=== PATIENT | male | born 1975 | race Caucasian/White ===

== ENCOUNTER 2022-06-08 14:39 | Inpatient (IN) | payer OTHER, SELFPAY ==
[2022-06-08 15:07] VITALS: BP 165/96; PULSE 85; RESP 18; TEMP 36.8; O2SAT 95; BMI 30.9
--- NOTE | 2022-06-08 17:20 | ED_ITS ---
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 Mccarthy and had MRI 06/05 which showed demyelinating lesion possible MS patient also noticed patchy numbness and weakness of the other side of the body for last few weeks no family history of MS patient does not know much about his father patient feels bilateral altered sensation with off-balance feeling Related Data Allergies Allergy/AdvReac Type Severity Reaction Status Date / Time cilantro Allergy Anaphylaxis Uncoded 06/08/22 15:15 Review of Systems Review of Systems: Yes all other systems are reviewed and are negative [facility] Social History Social History Alcohol intake: former Patient Tobacco Use Status: Never used Tobacco Use of substances other than those prescribed or required for medical reasons: No Advance Directives: No Advance Directives Information Provided: Yes Physical Exam Vital Signs: Vital Signs: Last Vital Signs Temp 98.5 F 06/08/22 19:27 Pulse 70 06/08/22 22:27 Resp 15 06/08/22 22:27 BP 127/77 06/08/22 22:27 Pulse Ox 96 06/08/22 22:27 O2 Del Method 06/08/22 22:27 BMI result Body Mass Index 30.9 Appearance: Alert. Oriented X3. No acute distress. Eyes: PERRLA, No Nystagmus EOMI no diplopia ENT: Pharynx normal. Oral Mucosa moist Neck: Normal inspection. Neck supple. CVS: Normal heart rate and rhythm. Pulses normal. Respiratory: No respiratory distress. Equal air entry bilateral, no wheezing/rales/rhonchi Abdomen: Soft and nontender. Bowel sounds are present, no mass palpable, no CVA tenderness Skin: Skin warm and dry. Normal skin color. Normal skin turgor. Extremities: No lower extremity edema. No calf tenderness Neuro: Oriented X 3. No motor deficit. No sensory deficit.No cerebellar signs , cranial nerves II-XII intact, slight left footdrop+ Procedures Lumbar Puncture Time Out Performed: Yes Patient Position: upright Skin Prep: Povidone-Iodine 1% Local Anesthetic: lidocaine 2% Amount of anesthesia used (mL): 5 Spinal Needle Gauge: 22G Interspace Used: L4-L5 Fluid Initially Obtained: clear Complications: none MDM - Neuro Symptoms/Deficit MDM Narrative Medical decision making narrative: Patient with flare of multiple sclerosis spinal tap was done sample sent for oligoclonal bands. Case discussed with neurologist Dr. Kulkarni advised to start on high-dose Solu-Medrol for 3 days Medical Records Attestation: I reviewed the patient's medical records. Lab Data Attestation: I reviewed the patient's lab results. Result diagrams: 06/08/22 17:35 06/08/22 17:35 Labs: Lab Results 06/08/22 06/08/22 06/08/22 Range/Units 17:35 17:35 17:35 WBC 7.2 (4.8-10.8) X10*3/uL RBC 5.94 H (4.60-5.80) X10*6/uL Hgb 16.7 (14.0-18.0) g/dl Hct 49.0 (42.0-52.0) % MCV 82.5 (80.0-98.0) fL MCH 28.1 (27.0-33.0) pg MCHC 34.1 (31.0-36.0) g/dl RDW 12.0 (11.0-16.0) % Plt Count 234 (160-400) X10*3/uL MPV 9.1 L (9.4-12.4) fL Immature Gran % (Auto) 0.3 (0.0-0.4) % Neut % (Auto) 55.7 (45-73) % Lymph % (Auto) 33.2 (20-40) % [place] % (Auto) 7.2 (2-11) % Eos % (Auto) 2.4 (0-4) % Baso % (Auto) 1.2 (0-2) % Lymph # (Auto) 2.4 (1.2-4.9) X10*3/uL [place] # (Auto) 0.5 (0.1-1.2) X10*3/uL Eos # (Auto) 0.2 (0.0-0.4) X10*3/uL Baso # (Auto) 0.1 (0.0-0.2) X10*3/uL Abs Immat Gran (auto) 0.02 (0.00-0.03) X10*3/uL Absolute Neuts (auto) 4.0 (2.0-8.3) x10*3/uL Absolute Nucleated RBC 0.000 (0.0-0.012) X10*3/uL Nucleated RBC % (auto) 0.0 (0.0-0.2) /100WBC ESR 2 (0-15) MM/HR Sodium 140 (135-145) mmol/L Potassium 4.5 (3.3-5.1) mmol/L Chloride 101 (96-108) mmol/L Carbon Dioxide 24 (22-29) mmol/L Anion Gap 20 (12-20) BUN 17 H (9-16) mg/dL Creatinine 1.04 (0.5-1.4) mg/dL Estim Creat Clear Calc 85.5 Estimated GFR > 60 Random Glucose 90 (60-115) mg/dL Calcium 10.2 (8.4-10.2) mg/dL Magnesium 2.3 (1.6-2.6) mg/dL Total Bilirubin 0.8 (0.0-1.0) mg/dL AST 40 H (5-37) U/L ALT 53 H (0-40) U/L Alkaline Phosphatase 71 (39-117) U/L C-Reactive Protein 0.08 (< or = 0.50) mg/dL Total Protein 7.6 (6.5-8.0) g/dL Albumin 4.9 (3.5-5.0) g/dL CSF Tube Number CSF Volume ML CSF Appearance CSF Color CSF WBC MM*3 CSF RBC MM*3 CSF Lymphocytes % CSF Appearance (b) CSF Glucose CSF Total Protein (15-45) mg/dL COVID-19 (TITI) (Negative) COVID-19 Clin Com 06/08/22 06/08/22 06/08/22 Range/Units 18:37 18:50 18:50 WBC (4.8-10.8) X10*3/uL RBC (4.60-5.80) X10*6/uL Hgb (14.0-18.0) g/dl Hct (42.0-52.0) % MCV (80.0-98.0) fL MCH (27.0-33.0) pg MCHC (31.0-36.0) g/dl RDW (11.0-16.0) % Plt Count (160-400) X10*3/uL MPV (9.4-12.4) fL Immature Gran % (Auto) (0.0-0.4) % Neut % (Auto) (45-73) % Lymph % (Auto) (20-40) % [place] % (Auto) (2-11) % Eos % (Auto) (0-4) % Baso % (Auto) (0-2) % Lymph # (Auto) (1.2-4.9) X10*3/uL [place] # (Auto) (0.1-1.2) X10*3/uL Eos # (Auto) (0.0-0.4) X10*3/uL Baso # (Auto) (0.0-0.2) X10*3/uL Abs Immat Gran (auto) (0.00-0.03) X10*3/uL Absolute Neuts (auto) (2.0-8.3) x10*3/uL Absolute Nucleated RBC (0.0-0.012) X10*3/uL Nucleated RBC % (auto) (0.0-0.2) /100WBC ESR (0-15) MM/HR Sodium (135-145) mmol/L Potassium (3.3-5.1) mmol/L Chloride (96-108) mmol/L Carbon Dioxide (22-29) mmol/L Anion Gap (12-20) BUN (9-16) mg/dL Creatinine (0.5-1.4) mg/dL Estim Creat Clear Calc Estimated GFR Random Glucose (60-115) mg/dL Calcium (8.4-10.2) mg/dL Magnesium (1.6-2.6) mg/dL Total Bilirubin (0.0-1.0) mg/dL AST (5-37) U/L ALT (0-40) U/L Alkaline Phosphatase (39-117) U/L C-Reactive Protein (< or = 0.50) mg/dL Total Protein (6.5-8.0) g/dL Albumin (3.5-5.0) g/dL CSF Tube Number 1 4 CSF Volume 1.0 2.0 ML CSF Appearance CLEAR CLEAR CSF Color COLORLESS COLORLESS CSF WBC 1 3 MM*3 CSF RBC 2 0 MM*3 CSF Lymphocytes 100 100 % CSF Appearance (b) CSF Glucose CSF Total Protein (15-45) mg/dL COVID-19 (TITI) Negative (Negative) COVID-19 Clin Com See Note 06/08/22 06/08/22 Range/Units 18:50 18:50 WBC (4.8-10.8) X10*3/uL RBC (4.60-5.80) X10*6/uL Hgb (14.0-18.0) g/dl Hct (42.0-52.0) % MCV (80.0-98.0) fL MCH (27.0-33.0) pg MCHC (31.0-36.0) g/dl RDW (11.0-16.0) % Plt Count (160-400) X10*3/uL MPV (9.4-12.4) fL Immature Gran % (Auto) (0.0-0.4) % Neut % (Auto) (45-73) % Lymph % (Auto) (20-40) % [place] % (Auto) (2-11) % Eos % (Auto) (0-4) % Baso % (Auto) (0-2) % Lymph # (Auto) (1.2-4.9) X10*3/uL [place] # (Auto) (0.1-1.2) X10*3/uL Eos # (Auto) (0.0-0.4) X10*3/uL Baso # (Auto) (0.0-0.2) X10*3/uL Abs Immat Gran (auto) (0.00-0.03) X10*3/uL Absolute Neuts (auto) (2.0-8.3) x10*3/uL Absolute Nucleated RBC (0.0-0.012) X10*3/uL Nucleated RBC % (auto) (0.0-0.2) /100WBC ESR (0-15) MM/HR Sodium (135-145) mmol/L Potassium (3.3-5.1) mmol/L Chloride (96-108) mmol/L Carbon Dioxide (22-29) mmol/L Anion Gap (12-20) BUN (9-16) mg/dL Creatinine (0.5-1.4) mg/dL Estim Creat Clear Calc Estimated GFR Random Glucose (60-115) mg/dL Calcium (8.4-10.2) mg/dL Magnesium (1.6-2.6) mg/dL Total Bilirubin (0.0-1.0) mg/dL AST (5-37) U/L ALT (0-40) U/L Alkaline Phosphatase (39-117) U/L C-Reactive Protein (< or = 0.50) mg/dL Total Protein (6.5-8.0) g/dL Albumin (3.5-5.0) g/dL CSF Tube Number Cancelled 2 CSF Volume ML CSF Appearance CSF Color CSF WBC MM*3 CSF RBC MM*3 CSF Lymphocytes % CSF Appearance (b) Cancelled Clear, Colorless CSF Glucose Cancelled 53 CSF Total Protein 49.7 H (15-45) mg/dL COVID-19 (TITI) (Negative) COVID-19 Clin Com Imaging Data MRI - head: Radiologist's impression: Result type: MRI Brain W+W/O Contrast Result date: June 05, 2022 15:13 EDT Result status: Modified Result title: MRI Brain W+W/O Contrast Performed by: Not on Staff , RHONDA HUGHES on June 05, 2022 16:26 EDT Verified by: Not on Staff RHONDA MD on June 05, 2022 16:26 EDT Encounter info: [id number], [place] [facility] - * Final Report * Reason For Exam ruling out old stroke VS Mass VS MS;ruling out old stroke VS Mass VS MS RESULT: MRI Brain W+W/O Contrast [place] [facility] VISIT NUMBER :[id number] Patient Name: Alexy Navarro Date of : 1975 Date of Exam: 06-05-2022 Referring Physician: Juan Toro [address] [address] Exam: MR Brain (C-/C+) CPT 03949 Room Description: [facility] 1.5 INDICATION: Muscle weakness. Evaluate for old stroke, mass, or MS. Per technologist interview, patient reports left-sided arm and leg numbness and weakness, now right leg numbness. TECHNIQUE: Multiplanar, multisequence MRI of the brain was performed before and after the uneventful administration of 17 mL Dotarem intravenous contrast. Noncontrast 3-D [id number] MRA of the head was performed. 3-D rotational MIP reformats were created at a separate workstation under supervision by the radiologist and used in the interpretation. COMPARISON: None. FINDINGS: MRI BRAIN: Several foci of T2 prolongation are seen in the brain, largest in the periventricular white matter adjacent to the mid body of the right lateral ventricle, as well as additional foci in the periventricular white matter adjacent to the mid body of the left lateral ventricle and right atrium, in the subcortical white matter of bilateral frontal lobes, and in the left patti. There is no associated restricted diffusion or enhancement at any site. The midline structures, including sella, corpus callosum, and craniocervical junction, are unremarkable. The ventricles, sulci, and subarachnoid spaces are normal in size and configuration. There is no evidence of acute infarct or intracranial hemorrhage. No mass lesion, mass effect, or shift of the midline structures is noted. There is no extra-axial collection. No abnormal enhancement is seen. The major intracranial vascular flow voids are present. Orbits, paranasal sinuses, and mastoids are unremarkable. MRA HEAD: Anterior circulation: The intracranial internal carotid arteries are normal in caliber and appearance. Bilateral ACAs and MCAs as well as their visualized branches are patent. There is no significant stenosis or proximal vessel cut off. There is no evidence of aneurysm or vascular malformation. Posterior circulation: The right vertebral artery is nondominant and small in caliber, but patent. Left vertebral artery is widely patent. The basilar artery, and bilateral PICA, AICA, SCA and [employer] branches are normal in caliber. There is predominantly supply to the left [employer] with hypoplastic left P1 segment. No stenosis, proximal cut off, aneurysm, or vascular malformation is seen. IMPRESSION: 1. Several nonenhancing foci of T2/FLAIR hyperintense signal in the brain, including periventricular and subcortical white matter as well as the brainstem. This raises concern for sequelae of demyelinating disease, though no enhancement is seen to suggest active demyelination. Differential considerations include other prior inflammatory/infectious etiology, early small vessel disease, vasculitis, among other etiologies. Correlate with clinical history and recommend follow-up imaging. 2. No acute infarct, hemorrhage, mass effect, or other acute intracranial abnormality. 3. No significant stenosis or proximal cutoff of the major intracranial arteries. Electronically Signed By: Angelic Watson MD Signature Line Dictated By: Not on Staff , RHONDA HUGHES Dictated Date/Time: 06/05/22 4:26 pm Reviewed By: Not on Staff , RHONDA HUGHES Signed By: Not on Staff , RHONDA HUGHES Signed Date/Time: 06/05/22 4:26 pm Transcribed By: ROBY Transcribed Date/Time: 06/05/22 4:26 pm MRI Brain W+W/O Contrast This document has an image Discharge Plan Discharge Clinical Impression: Multiple sclerosis exacerbation Patient Disposition: Admitted As Inpatient
[2022-06-08 17:42] LABS: MANUAL DIFF FLAG NO
[2022-06-08 17:44] LABS: Basophils Absolute Auto 0.1 X10*3/uL (0.0-0.2); Basophils Percent Auto 1.2 % (0-2); Eosinophils Absolute Auto 0.2 X10*3/uL (0.0-0.4); Eosinophils Percent Auto 2.4 % (0-4); Hemoglobin 16.7 g/dl (14.0-18.0); Imm Gran Abs Auto 0.02 X10*3/uL (0.00-0.03); Imm Gran Pct Auto 0.3 % (0.0-0.4); Lymphocytes Absolute Auto 2.4 X10*3/uL (1.2-4.9); Lymphocytes Percent Auto 33.2 % (20-40); Mean Corpuscular HGB Conc 34.1 g/dl (31.0-36.0); Mean Corpuscular Hemoglobin 28.1 pg (27.0-33.0); Mean Corpuscular Volume 82.5 fL (80.0-98.0); Mean Platelet Volume 9.1 fL (9.4-12.4); Monocytes Absolute Auto 0.5 X10*3/uL (0.1-1.2); Monocytes Percent Auto 7.2 % (2-11); Neutrophils Percent Auto 55.7 % (45-73); Platelet Count 234 X10*3/uL (160-400); Red Blood Count 5.94 X10*6/uL (4.60-5.80); White Blood Count 7.2 X10*3/uL (4.8-10.8)
[2022-06-08 17:59] LABS: Alanine Aminotransferase 53 U/L (0-40); Albumin Level 4.9 g/dL (3.5-5.0); Alkaline Phosphatase 71 U/L (39-117); Anion Gap 20 (12-20); Aspartate Amino Transferase 40 U/L (5-37); Bilirubin Total 0.8 mg/dL (0.0-1.0); Blood Urea Nitrogen 17 mg/dL (9-16); C Reactive Protein 0.08 mg/dL (< or = 0.50); Calcium 10.2 mg/dL (8.4-10.2); Carbon Dioxide 24 mmol/L (22-29); Chloride 101 mmol/L (96-108); Creatinine Clr Calc Pharmacy 85.5; Estimated Glomerular Filt Rate > 60; Glucose Random 90 mg/dL (60-115); Magnesium 2.3 mg/dL (1.6-2.6); Potassium 4.5 mmol/L (3.3-5.1); Sodium 140 mmol/L (135-145); Total Protein 7.6 g/dL (6.5-8.0)
[2022-06-08 18:08] VITALS: BP 119/84; PULSE 72; RESP 18; TEMP 37.1; O2SAT 94
[2022-06-08 18:22] LABS: Erythrocyte Sedimentation Rate 2 MM/HR (0-15)
[2022-06-08 19:02] LABS: COVID-19 Test Negative (Negative); IDNOW Serial# 16C4AD1C
[2022-06-08 19:19] LABS: CSF Appearance Clear, Colorless; CSF Tube # 2
[2022-06-08 19:27] VITALS: BP 126/77; PULSE 70; RESP 17; TEMP 36.9; O2SAT 96
[2022-06-08 19:49] LABS: Glucose CSF 53 mg/dL; Total Protein CSF 49.7 mg/dL (15-45)
[2022-06-08 19:51] LABS: Appearance CSF CLEAR; CSF Tube # 4; Color CSF COLORLESS; Lymphocytes CSF 100 %; Red Blood Cell CSF 0 MM*3; White Blood Cell CSF 3 MM*3
[2022-06-08 19:52] LABS: CSF Tube # 1; Color CSF COLORLESS; Lymphocytes CSF 100 %; Red Blood Cell CSF 2 MM*3; White Blood Cell CSF 1 MM*3
[2022-06-08] MEDS: methylPREDNISolone Sod Succ 1,000 MG in 0.9 % Sodium Chloride 50 ML 66 MG IV (21:15)
[2022-06-08 21:18] VITALS: BP 112/69; PULSE 68; RESP 17; O2SAT 96
--- NOTE | 2022-06-08 22:20 | PM.IMHP ---
History of Present Illness Date of Service: 06/08/22 Chief Complaint: MS this is a 46-year-old male who was otherwise healthy presents to the hospital stating that he was sent by his doctor for MS workup. Patient reports that about 10 days ago he was awoken in the middle the night with pain in his left arm. Over the next 10 days he progressively developed various abnormalities including left footdrop, that has made him fall several times with difficulty balancing himself, he then developed double vision that has resolved, he also has heat intolerance under the shower on the right of his torso, patient also noted but when he tried placing cold ice on his right torso he had shockwaves and felt like he was being electrocuted. Patient denies any similar episodes in the past, he reports no family history of MS or autoimmune disease reports that he had an MRI done by his primary care team which was concerning for MS and he was asked to come to the ED for further workup. Patient underwent LP in the ED and received 1000 mg of methylprednisone which he reports feels that is already working with his weakness in his left foot significantly improved after receiving the steroid. On arrival to the ED patient with dynamic least stable with no significant abnormal vitals labs reviewed, are unremarkable. LP shows total protein of 49.7 but otherwise not significantly abnormal. Patient will be admitted for further management Review of Systems Review of Systems: Yes all other systems are reviewed and are negative [facility] Medical History (Updated 06/09/22 @ 06:41 by Brandi Avilez MD) No pertinent past medical history Family History (Updated 06/09/22 @ 06:40 by Brandi Avilez MD) Other Diabetes Hypertension Surgical History (Updated 06/09/22 @ 06:39 by Brandi Avilez MD) S/P ACL repair Social History Alcohol intake: former Patient Tobacco Use Status: Never used Tobacco Use of substances other than those prescribed or required for medical reasons: No Advance Directives: No Advance Directives Information Provided: Yes Meds Allergies Allergy/AdvReac Type Severity Reaction Status Date / Time cilantro Allergy Anaphylaxis Uncoded 06/08/22 15:15 Active Medications: Current Medications Acetaminophen (Acetaminophen 325 Mg Tablet) 650 mg PO Q6H PRN PRN Reason: Pain, Mild (Pain Scale 1-3) Docusate Sodium (Docusate Sodium 100 Mg Capsule) 100 mg PO DAILY PRN PRN Reason: Constipation Enoxaparin Sodium (Enoxaparin Sodium 40 Mg/0.4 Ml Syringe) 40 mg SUBCUT Q24H [facility] Methylprednisolone Sodium Succinate 1,000 mg/ Sodium Chloride 66 mls @ 66 mls/hr IV DAILY [facility]ARUS Ondansetron HCl (Ondansetron Hcl 4 Mg/2 Ml Vial) 4 mg IVPUSH Q8H PRN PRN Reason: Nausea and Vomiting Sodium Chloride (0.9 % Sodium Chloride Flush 3 Ml Syringe) 3 ml IVFLUSH QSHIFT LAZARUS Physical Exam Vital Signs and Narrative: Vital Signs: Last Vital Signs Temp 98.5 F 06/08/22 19:27 Pulse 68 06/08/22 21:18 Resp 17 06/08/22 21:18 BP 112/69 06/08/22 21:18 Pulse Ox 96 06/08/22 21:18 O2 Del Method 06/08/22 21:18 BMI result Body Mass Index 30.9 Const: General: cooperative and no acute distress Orientation/consciousness: patient oriented x3 Eyes: General: appearance normal, both eyes and all related structures Pupils: Equal, round and reactive pupils present Resp: Effort & Inspection: normal respiratory effort Auscultation: clear to auscultation bilaterally Cardio: Rate: regular rate Rhythm: regular rhythm GI: Palpation (GI): Soft to palpation Auscultation: normal bowel sounds Skin: General skin exam: no rashes or lesions noted Neuro: Other: strength is 5/5 in all extremities cranial nerves 2-12 intact General: patient oriented x3 Cranial nerves: Yes Equal, round and reactive pupils present Cognition (Neuro): normal cognition Extrem: General: Yes normal to inspection and Yes no pedal edema Results Labs CBC and Chem 7: 06/08/22 17:35 06/08/22 17:35 Labs: Laboratory Results - last 24 hr 06/08/22 06/08/22 06/08/22 17:35 17:35 17:35 MCV 82.5 MCH 28.1 MCHC 34.1 RDW 12.0 Plt Count 234 MPV 9.1 L Immature Gran % (Auto) 0.3 Neut % (Auto) 55.7 Lymph % (Auto) 33.2 [place] % (Auto) 7.2 Eos % (Auto) 2.4 Baso % (Auto) 1.2 Lymph # (Auto) 2.4 [place] # (Auto) 0.5 Eos # (Auto) 0.2 Baso # (Auto) 0.1 Abs Immat Gran (auto) 0.02 Absolute Neuts (auto) 4.0 Absolute Nucleated RBC 0.000 Nucleated RBC % (auto) 0.0 ESR 2 Anion Gap 20 Estim Creat Clear Calc 85.5 Estimated GFR > 60 Random Glucose 90 Calcium 10.2 Magnesium 2.3 Total Bilirubin 0.8 AST 40 H ALT 53 H Alkaline Phosphatase 71 C-Reactive Protein 0.08 Total Protein 7.6 Albumin 4.9 CSF Tube Number CSF Volume CSF Appearance CSF Color CSF WBC CSF RBC CSF Lymphocytes CSF Appearance (b) CSF Glucose CSF Total Protein COVID-19 (TITI) COVID-19 Clin Com 06/08/22 06/08/22 06/08/22 18:37 18:50 18:50 MCV MCH MCHC RDW Plt Count MPV Immature Gran % (Auto) Neut % (Auto) Lymph % (Auto) [place] % (Auto) Eos % (Auto) Baso % (Auto) Lymph # (Auto) [place] # (Auto) Eos # (Auto) Baso # (Auto) Abs Immat Gran (auto) Absolute Neuts (auto) Absolute Nucleated RBC Nucleated RBC % (auto) ESR Anion Gap Estim Creat Clear Calc Estimated GFR Random Glucose Calcium Magnesium Total Bilirubin AST ALT Alkaline Phosphatase C-Reactive Protein Total Protein Albumin CSF Tube Number 1 4 CSF Volume 1.0 2.0 CSF Appearance CLEAR CLEAR CSF Color COLORLESS COLORLESS CSF WBC 1 3 CSF RBC 2 0 CSF Lymphocytes 100 100 CSF Appearance (b) CSF Glucose CSF Total Protein COVID-19 (TITI) Negative COVID-19 Clin Com See Note 06/08/22 06/08/22 18:50 18:50 MCV MCH MCHC RDW Plt Count MPV Immature Gran % (Auto) Neut % (Auto) Lymph % (Auto) [place] % (Auto) Eos % (Auto) Baso % (Auto) Lymph # (Auto) [place] # (Auto) Eos # (Auto) Baso # (Auto) Abs Immat Gran (auto) Absolute Neuts (auto) Absolute Nucleated RBC Nucleated RBC % (auto) ESR Anion Gap Estim Creat Clear Calc Estimated GFR Random Glucose Calcium Magnesium Total Bilirubin AST ALT Alkaline Phosphatase C-Reactive Protein Total Protein Albumin CSF Tube Number Cancelled 2 CSF Volume CSF Appearance CSF Color CSF WBC CSF RBC CSF Lymphocytes CSF Appearance (b) Cancelled Clear, Colorless CSF Glucose Cancelled 53 CSF Total Protein 49.7 H COVID-19 (TITI) COVID-19 Clin Com Assessment and Plan (1) Multiple sclerosis exacerbation: Status: Acute Plan 46-year-old male with no significant past medical history presents to the hospital with complaints of very is neurological abnormalities found to have possible MS # MS attack - clinically isolated syndrome - this is a 1st episode with various symptoms including electric-like shock pain, heat intolerance, foot drop, diplopia - for started on methylprednisone 1000 mg daily - neurology consulted - MRI of the brain done outpatient, will attempt to obtain report but at this time will not have the report of the MRI - will hold off on further imaging awaiting further recommendation by Neurology DVT prophylaxis: Lovenox Quality Stroke Does the patient have a stroke diagnosis?: No VTE Prior VTE?: No VTE Risk Level:: Medical - moderate - high VTE Device Contraindication: Treatment Not Indicated VTE Drug Contraindication: N/A - Med Ordered
--- OUTSIDE RECORDS SUMMARY | 2022-06-08 22:25 | XMS_ITS | Continuity of Care Document ---
:1975 Author Organization [facility] Address [address] [place] [address]- Care Team Providers Name Role Phone Juan Toro DO Primary Care Physician Encounter [facility] Date(s): 06/04/22 - 06/04/[address] [address]- Discharge Disposition: A-D/C Home Attending Physician: Bettie HUGHES, Juan Luis Lemus Admitting Physician: Bettie HUGHES, Juan Luis Lemus Referring Physician: Not on Staff, Referring MD Allergies, Adverse Reactions, Alerts No Known Allergies Medications Claritin 10 mg oral tablet 1 tablet = 10 mg, By Mouth, Daily, # 30 tablet, 0 Refills, Maintenance, Tablet Start Date: 03/07/13 Status: Ordereddocusate sodium 100 mg oral capsule 100 mg, 1, capsule, By Mouth, 2 times a day, # 60 capsule, Refills 0, Tot. Refills 0, Maintenance, 02/09/21 12:45:00 EDT, Route to Pharmacy Electronically, [id number], Partial fill upon patient request if the prescription is for a sched... Start Date: 02/09/21 Status: OrderedPatient's Own Meds robitussin 2 sirena, By Mouth, Every 4 hours, Maintenance Start Date: 01/23/19 Status: Ordered Problem List Condition Effective Dates Status Health Status Informant Healthy adult(Confirmed) Active Obese class I(Confirmed) Active Vital Signs Most recent to oldest 1 2 3 [Reference Range]: Height 165 cm 165 cm 165 cm (06/04/22 10:17 AM) (06/04/22 7:09 AM) (06/04/22 7: 05 AM) Weight 82.1 kg 82.1 kg 82.1 kg (06/04/22 10:17 AM) (06/04/22 7:09 AM) (06/04/22 7: 05 AM) Oxygen Saturation [94-100 %] 98 % 97 % 100 % (06/04/22 10:17 AM) (06/04/22 9:33 AM) (06/04/22 7: 05 AM) Pulse Rate [55-90 bpm] 67 bpm 67 bpm 73 bpm (06/04/22 10:17 AM) (06/04/22 9:33 AM) (06/04/22 7: 05 AM) Body Mass Index [18.5-24.99 30.16 kg/m2 30.16 kg/m2 kg/m2] *>HHI* *>HHI* (06/04/22 10:17 AM) (06/04/22 7:05 AM) Blood Pressure [90-138/55-84 130/103 mm Hg 124/86 mm Hg 150 /77 mm Hg mm Hg] (06/04/22 10:17 AM) (06/04/22 9:33 AM) *H* (06/04/22 7:05 AM ) Respiratory Rate [16-30 12 br/min 18 br/min 18 br/mi n br/min] *L* (06/04/22 9:33 AM) (06/04/22 7:05 AM) (06/04/22 10:17 AM) Temperature [96.8-100.4 DegF] 96.9 DegF (06/04/22 7:05 AM) Mode of Delivery (Oxygen) Room air Room air Room a ir (06/04/22 10:17 AM) (06/04/22 9:33 AM) (06/04/22 7: 05 AM) Blood pressure sites Arm, left Arm, right (06/04/22 10:17 AM) (06/04/22 7:05 AM) Temperature Route Temporal (06/04/22 7:05 AM) Dry Weight 82.1 kg 82.1 kg 82.1 kg (06/04/22 10:17 AM) (06/04/22 7:09 AM) (06/04/22 7: 05 AM) Weight Obtained Via Standing scale (06/04/22 7:05 AM) Dry Weight Obtained Via Standing scale (06/04/22 7:05 AM) Social History Social History Type Response Smoking Status Never smoker entered on: 03/09/17 Sex Care Team PersonnelName: Juan Toro DO [address]: [address] [place] [address], [place] [address]
--- OUTSIDE RECORDS SUMMARY | 2022-06-08 22:25 | XMS_ITS | Continuity of Care Document ---
:1975 Author Organization [facility] Address [address] [place] [id number]- Care Team Providers Name Role Phone Juan Toro DO Primary Care Physician Encounter [facility] Date(s): 12/24/20 - 12/24/[address] [address]- Discharge Disposition: A-D/C Home Attending Physician: Michele Cardenas MD Admitting Physician: Michele Cardenas MD Referring Physician: Not on Staff, Referring MD Allergies, Adverse Reactions, Alerts Substance Reaction Severity Status NKA Active Medications Augmentin 875 mg-125 mg oral tablet 1 tablet, By Mouth, Every 12 hours, for 14 days, # 28 tablet, 0 Refills, Acute 01/07/21 15:16:00 EDT, 12/24/20 15:16:00 EDT, Tablet, [facility]/pharm[facility] #[id number], Partial fill upon patient request if the prescription is for a schedule II opioid drug., 163, cm,... Start Date: 12/24/20 Stop Date: 01/07/21 Status: OrderedClaritin 10 mg oral tablet 1 tablet = 10 mg, By Mouth, Daily, # 30 tablet, 0 Refills, Maintenance, Tablet Start Date: 03/07/13 Status: OrderedPatient's Own Meds robitussin 2 outsole flexer, By Mouth, Every 4 hours, Maintenance Start Date: 01/23/19 Status: Ordered Problem List Condition Effective Dates Status Health Status Informant Healthy adult(Confirmed) Active Vital Signs Most recent to oldest 1 2 3 [Reference Range]: Height 163 cm 163 cm 163 cm (12/24/20 12:29 PM) (12/24/20 9:27 AM) (12/24/20 9: 00 AM) Weight 83.8 kg 83.8 kg 83.8 kg (12/24/20 12:29 PM) (12/24/20:27 AM) (12/24/20 9: 00 AM) Oxygen Saturation [94-100 %] 100 % 97 % 97 % (12/24/20:29 PM) (12/24/20 10:32 AM) (12/24/20 9 :27 AM) Pulse Rate [55-90 bpm] 90 bpm 97 bpm 94 bpm (12/24/20 12:29 PM) *H* *H* (12/24/20:32 AM) (12/24/20:27 AM) Body Mass Index [18.5-24.99] 31.54 31.54 31. 54 *>HHI* *>HHI* *>HHI* (12/24/20:29 PM) (12/24/20 9:27 AM) (12/24/20 8: 59 AM) Blood Pressure [90-138/55-84 119/80 mm Hg 129/82 mm Hg 118 /93 mm Hg mm Hg] (12/24/20 12:29 PM) (12/24/20 10:32 AM) (12/24/20 9 :27 AM) Respiratory Rate [16-30 18 br/min 27 br/min 18 br/mi n br/min] (12/24/20 12:29 PM) (12/24/20 10:32 AM) (12/24/20 9 :27 AM) Temperature [96.8-100.4 DegF] 96.5 DegF *L* (12/24/20 8:59 AM) Mode of Delivery (Oxygen) Room air Room air Room a ir (12/24/20 12:29 PM) (12/24/20 10:32 AM) (12/24/20 9 :27 AM) Blood pressure sites Arm, left Arm, left Arm, left (12/24/20 12:29 PM) (12/24/20 10:32 AM) (12/24/20 9 :27 AM) Temperature Route Temporal (12/24/20 8:59 AM) Dry Weight 83.8 kg 83.8 kg 83.8 kg (12/24/20 12:29 PM) (12/24/20 9:27 AM) (12/24/20 9: 00 AM) Weight Obtained Via Standing scale (12/24/20 8:59 AM) Dry Weight Obtained Via Standing scale (12/24/20 8:59 AM) Social History Social History Type Response Smoking Status Never smoker entered on: 03/09/17 Sex
--- OUTSIDE RECORDS SUMMARY | 2022-06-08 22:25 | XMS_ITS | Continuity of Care Document ---
:1975 Author Organization [facility] Address [address] [place] [address]- Care Team Providers Name Role Phone Not on Staff, PCP Primary Care Physician Unavailable [id number] Date(s): 02/20/21 - 03/22/[address] [facility] [address] [place] [address]- Attending Physician: Faisal Pittman Admitting Physician: Faisal Pittman Referring Physician: Faisal Pittman Allergies, Adverse Reactions, Alerts Substance Reaction Severity Status NKA Active Medications Claritin 10 mg oral tablet 1 [...] 02/09/21 Status: OrderedPatient's Own Meds robitussin 2 sales expert, By Mouth, Every 4 hours, Maintenance Start Date: 01/23/19 Status: Ordered Problem List Condition Effective Dates Status Health Status Informant Healthy adult(Confirmed) Active Social History Social History Type Response Smoking Status Never smoker entered on: 03/09/17 Sex
--- OUTSIDE RECORDS SUMMARY | 2022-06-08 22:25 | XMS_ITS | Continuity of Care Document ---
:1975 Author Organization [facility] Address [address] [place] [address]- Care Team Providers Name Role Phone Not on Staff, PCP Primary Care Physician Unavailable Encounter [facility] Date(s): 02/09/21 - 02/09/[address] [address]- Discharge Disposition: A-D/C Home Attending Physician: Sumit Ward MD Admitting Physician: Sumit Ward MD Referring Physician: Sumit Ward MD Allergies, Adverse Reactions, Alerts Substance Reaction [...] for a sched... Start Date: 02/09/21 Status: Orderedibuprofen 600 mg oral tablet 600 mg, 1, tablet, By Mouth, Every 8 hours, PRN, # 30 tablet, Refills 0, Tot. Refills 0, Acute 02/23/21 12:47:00 EDT, Pain , Mild, 02/09/21 12:45:00 EDT, Route to Pharmacy Electronically, [facility] #[id number], Partial fill upon patient request if... Start Date: 02/09/21 Stop Date: 02/23/21 Status: OrderedoxyCODONE 5 mg oral tablet 5 mg, 1, tablet, By Mouth, Every 6 hours, PRN, Take 1 tablet for moderate pain or 2 tablets for severe pain if needed., # 10 tablet, Refills 0, Tot. Refills 0, Acute 02/16/21 12:46:00 EDT, Pain , Severe, 02/09/21 12:45:00 EDT, Route to Pharmacy Electr... Start Date: 02/09/21 Stop Date: 02/16/21 Status: OrderedPatient's Own Meds robitussin 2 leak detection engineer, By Mouth, Every 4 hours, Maintenance Start Date: 01/23/19 Status: Ordered Problem List Condition Effective Dates Status Health Status Informant Healthy adult(Confirmed) Active Vital Signs Most recent to oldest 1 2 3 [Reference Range]: Height 163 cm (02/09/21 7:59 AM) Oxygen Saturation [94-100 %] 97 % 96 % 100 % (02/09/21 1:22 PM) (02/09/21 1:07 PM) (02/09/21 12:58 PM) Pulse Rate [55-90 bpm] 69 bpm (02/09/21 7:59 AM) Blood Pressure [90-138/55-84 mm 133/78 mm Hg 137/88 mm Hg 129/80 mm Hg Hg] (02/09/21 1:22 PM) (02/09/21 1:07 PM) (02/09/21 12:58 PM) Respiratory Rate [16-30 br/min] 22 br/min 16 br/min 15 br/min (02/09/21 1:22 PM) (02/09/21 1:07 PM) *L* (02/09/21 12:58 PM ) Temperature [96.8-100.4 DegF] 97.3 DegF 98.0 DegF (02/09/21 12:37 PM) (02/09/21 7:59 AM) Liters per Minute 8 L/min (02/09/21 12:37 PM) Mode of Delivery (Oxygen) Room air Simple face mask Room air (02/09/21 12:58 PM) (02/09/21 12:37 PM) (02/09/21 7:59 AM) Blood pressure sites Arm, left Arm, left (02/09/21 12:58 PM) (02/09/21 7:59 AM) Temperature Route Temporal (02/09/21 7:59 AM) Dry Weight 77.5 kg (02/09/21 7:59 AM) Social History Social History Type Response Smoking Status Never smoker entered on: 03/09/17 Sex
--- OUTSIDE RECORDS SUMMARY | 2022-06-08 22:25 | XMS_ITS | Continuity of Care Document ---
:1975 Author Organization [facility] Address [address] [place] [address]- Care Team Providers Name Role Phone Not on Staff, PCP Primary Care Physician Unavailable Encounter [facility] Date(s): 12/16/19 - 12/26/19 [facility] [address] [place] [address]- [facility] Attending Physician: Faisal Pittman Admitting Physician: Faisal Pittman Referring Physician: AdmtrFaisal Allergies, Adverse Reactions, Alerts Substance Reaction Severity Status NKA Active Medications Claritin 10 mg oral tablet 1 tablet = 10 mg, By Mouth, Daily, # 30 tablet, 0 Refills, Maintenance, Tablet Start Date: 03/07/13 Status: OrderedPatient's Own Meds robitussin 2 sirena, By Mouth, Every 4 hours, Maintenance Start Date: 01/23/19 Status: Ordered Problem List Condition Effective Dates Status Health Status Informant Healthy adult(Confirmed) Active Social History Social History Type Response Smoking Status Never smoker entered on: 03/09/17 Sex
--- OUTSIDE RECORDS SUMMARY | 2022-06-08 22:25 | XMS_ITS | Continuity of Care Document ---
:1975 Author Organization [facility] Address [address] [place] [address]- Care Team Providers Name Role Phone Not on Staff, PCP Primary Care Physician Unavailable Encounter [facility] Date(s): 10/13/19 - 01/15/20 [facility] [address] [place] [address]- [facility] Attending Physician: Reynaldo Casas MD Allergies, Adverse Reactions, Alerts Substance Reaction [...]
[2022-06-08 22:27] VITALS: BP 127/77; PULSE 70; RESP 15; O2SAT 96
--- NOTE | 2022-06-08 23:52 | PC.NURSE ---
report given to overflow rn
[2022-06-09] VITALS (7 sets, daily range): BP systolic 118–143; BP diastolic 64–85; PULSE 74–99; RESP 16–18; TEMP 36.2–36.8; O2SAT 93–98; BMI 30.9
[2022-06-09] MEDS: 0.9 % Sodium Chloride Flush 3 ML SYRINGE IVFLUSH ×4 (00:17→21:11)
[2022-06-09 06:21] LABS: MANUAL DIFF FLAG NO
[2022-06-09 06:36] LABS: Basophils Percent Auto 0.2 % (0-2); Hemoglobin 16.4 g/dl (14.0-18.0); Imm Gran Abs Auto 0.02 X10*3/uL (0.00-0.03); Imm Gran Pct Auto 0.3 % (0.0-0.4); Lymphocytes Absolute Auto 0.7 X10*3/uL (1.2-4.9); Lymphocytes Percent Auto 11.1 % (20-40); Mean Corpuscular HGB Conc 34.2 g/dl (31.0-36.0); Mean Corpuscular Volume 81.9 fL (80.0-98.0); Mean Platelet Volume 9.5 fL (9.4-12.4); Monocytes Percent Auto 0.6 % (2-11); Neutrophils Absolute Auto 5.8 x10*3/uL (2.0-8.3); Neutrophils Percent Auto 87.8 % (45-73); Platelet Count 250 X10*3/uL (160-400); Red Blood Count 5.86 X10*6/uL (4.60-5.80); Red Cell Distribution Width 11.9 % (11.0-16.0); White Blood Count 6.6 X10*3/uL (4.8-10.8)
[2022-06-09 06:38] LABS: Oligoclonal Serum Yes
[2022-06-09 06:42] LABS: Anion Gap 18 (12-20); Blood Urea Nitrogen 17 mg/dL (9-16); Carbon Dioxide 22 mmol/L (22-29); Chloride 102 mmol/L (96-108); Creatinine Clr Calc Pharmacy 82.4; Estimated Glomerular Filt Rate > 60; Glucose Random 201 mg/dL (60-115); Potassium 4.3 mmol/L (3.3-5.1); Sodium 138 mmol/L (135-145)
[2022-06-09 07:57] LABS: Cholesterol 269 mg/dL; HDL Cholesterol 43 mg/dL; LDL Cholesterol Calculated 201 mg/dl; Triglycerides 125 mg/dL
[2022-06-09 08:15] LABS: Estimated Average Glucose 100 mg/dL; Hemoglobin A1C 136.2922 umol/L; Hemoglobin A1c % 5.1 %
--- NOTE | 2022-06-09 08:53 | PHA.MEDREC ---
Pharmacy Consult ? Medication Reconciliation Pharmacy has completed the medication reconciliation.
--- NOTE | 2022-06-09 09:29 | P.PNIM_ITS ---
Subjective Subjective Date of Service: 06/09/22 Interval History: cc: blurry vision, leg drag interval history:some improvement Cardiovascular Cardiovascular: Reports no additional cardiovascular complaints Respiratory Respiratory: Reports no additional respiratory complaints Physical Exam Vital Signs: Vital Signs: Last Vital Signs Temp 98.3 F 06/09/22 08:00 Pulse 87 06/09/22 08:00 Resp 18 06/09/22 08:00 BP 132/80 06/09/22 08:00 Pulse Ox 93 06/09/22 08:00 O2 Del Method 06/09/22 08:00 BMI result Body Mass Index 30.9 General: AO X 3, no acute distress Resp: CTA bilateral, no accessory muscles used CVS: S1,S2,RRR GI: soft, non tender, non distended Neuro: motor grossly intact, alert Psych: appropriate affect, appropriate insight Objective Data Active Medications Acetaminophen (Acetaminophen 325 Mg Tablet) 650 mg PO Q6H PRN PRN Reason: Pain, Mild (Pain Scale 1-3) Docusate Sodium (Docusate Sodium 100 Mg Capsule) 100 mg PO DAILY PRN PRN Reason: Constipation Enoxaparin Sodium (Enoxaparin Sodium 40 Mg/0.4 Ml Syringe) 40 mg SUBCUT Q24H [facility] Last Admin: 06/08/22 22:26 Dose: Not Given Documented By: COMFORT Non-Admin Reason: patient politely declined despite education Methylprednisolone Sodium Succinate 1,000 mg/ Sodium Chloride 66 mls @ 66 mls/h r IV DAILY [facility] Ondansetron HCl (Ondansetron Hcl 4 Mg/2 Ml Vial) 4 mg IVPUSH Q8H PRN PRN Reason: Nausea and Vomiting Sodium Chloride (0.9 % Sodium Chloride Flush 3 Ml Syringe) 3 ml IVFLUSH QSHIFT [facility] Last Admin: 06/09/22 00:17 Dose: 3 ml Documented By: TOM Labs CBC & Chem 7: 06/09/22 05:58 06/09/22 05:58 Labs: Laboratory Results - last 24 hr 06/08/22 06/08/22 06/08/22 17:35 17:35 17:35 MCV 82.5 MCH 28.1 MCHC 34.1 RDW 12.0 Plt Count 234 MPV 9.1 L Immature Gran % (Auto) 0.3 Neut % (Auto) 55.7 Lymph % (Auto) 33.2 Arroyo % (Auto) 7.2 Eos % (Auto) 2.4 Baso % (Auto) 1.2 Lymph # (Auto) 2.4 Arroyo # (Auto) 0.5 Eos # (Auto) 0.2 Baso # (Auto) 0.1 Abs Immat Gran (auto) 0.02 Absolute Neuts (auto) 4.0 Absolute Nucleated RBC 0.000 Nucleated RBC % (auto) 0.0 ESR 2 Anion Gap 20 Estim Creat Clear Calc 85.5 Estimated GFR > 60 Random Glucose 90 Estimat Average Glucose Hemoglobin A1c % Calcium 10.2 Magnesium 2.3 Total Bilirubin 0.8 AST 40 H ALT 53 H Alkaline Phosphatase 71 C-Reactive Protein 0.08 Total Protein 7.6 Albumin 4.9 Triglycerides Cholesterol LDL Cholesterol, Calc HDL Cholesterol CSF Tube Number CSF Volume CSF Appearance CSF Color CSF WBC CSF RBC CSF Lymphocytes CSF Appearance (b) CSF Glucose CSF Total Protein COVID-19 (TITI) COVID-InGaugeIt 06/08/22 06/08/22 06/08/22 18:37 18:50 18:50 MCV MCH MCHC RDW Plt Count MPV Immature Gran % (Auto) Neut % (Auto) Lymph % (Auto) [place]royo % (Auto) Eos % (Auto) Baso % (Auto) Lymph # (Auto) [place]royo # (Auto) Eos # (Auto) Baso # (Auto) Abs Immat Gran (auto) Absolute Neuts (auto) Absolute Nucleated RBC Nucleated RBC % (auto) ESR Anion Gap Estim Creat Clear Calc Estimated GFR Random Glucose Estimat Average Glucose Hemoglobin A1c % Calcium Magnesium Total Bilirubin AST ALT Alkaline Phosphatase C-Reactive Protein Total Protein Albumin Triglycerides Cholesterol LDL Cholesterol, Calc HDL Cholesterol CSF Tube Number 1 4 CSF Volume 1.0 2.0 CSF Appearance CLEAR CLEAR CSF Color COLORLESS COLORLESS CSF WBC 1 3 CSF RBC 2 0 CSF Lymphocytes 100 100 CSF Appearance (b) CSF Glucose CSF Total Protein COVID-19 (TITI) Negative COVID-InGaugeIt See Note 06/08/22 06/08/22 06/09/22 18:50 18:50 05:58 MCV 81.9 MCH 28.0 MCHC 34.2 RDW 11.9 Plt Count 250 MPV 9.5 Immature Gran % (Auto) 0.3 Neut % (Auto) 87.8 H Lymph % (Auto) 11.1 L Arroyo % (Auto) 0.6 L Eos % (Auto) 0.0 Baso % (Auto) 0.2 Lymph # (Auto) 0.7 L [place]royo # (Auto) 0.0 L Eos # (Auto) 0.0 Baso # (Auto) 0.0 Abs Immat Gran (auto) 0.02 Absolute Neuts (auto) 5.8 Absolute Nucleated RBC 0.000 Nucleated RBC % (auto) 0.0 ESR Anion Gap Estim Creat Clear Calc Estimated GFR Random Glucose Estimat Average Glucose Hemoglobin A1c % Calcium Magnesium Total Bilirubin AST ALT Alkaline Phosphatase C-Reactive Protein Total Protein Albumin Triglycerides Cholesterol LDL Cholesterol, Calc HDL Cholesterol CSF Tube Number Cancelled 2 CSF Volume CSF Appearance CSF Color CSF WBC CSF RBC CSF Lymphocytes CSF Appearance (b) Cancelled Clear, Colorless CSF Glucose Cancelled 53 CSF Total Protein 49.7 H COVID-19 (TITI) COVNanali 06/09/22 06/09/22 05:58 05:58 MCV MCH MCHC RDW Plt Count MPV Immature Gran % (Auto) Neut % (Auto) Lymph % (Auto) Arroyo % (Auto) Eos % (Auto) Baso % (Auto) Lymph # (Auto) Arroyo # (Auto) Eos # (Auto) Baso # (Auto) Abs Immat Gran (auto) Absolute Neuts (auto) Absolute Nucleated RBC Nucleated RBC % (auto) ESR Anion Gap 18 Estim Creat Clear Calc 82.4 Estimated GFR > 60 Random Glucose 201 H D Estimat Average Glucose 100 Hemoglobin A1c % 5.1 Calcium 10.0 Magnesium Total Bilirubin AST ALT Alkaline Phosphatase C-Reactive Protein Total Protein Albumin Triglycerides 125 Cholesterol 269 LDL Cholesterol, Calc 201 HDL Cholesterol 43 CSF Tube Number CSF Volume CSF Appearance CSF Color CSF WBC CSF RBC CSF Lymphocytes CSF Appearance (b) CSF Glucose CSF Total Protein COVID-19 (TITI) COVIDMagazino Com Microbiology Microbiology Results: Microbiology 06/08/22 18:50 Gram Stain - Final Cerebrospinal Fluid CSF Examination - Final Fluid Description - Final Assessment and Plan (1) Multiple sclerosis exacerbation: Status: Acute Plan 46M presented with blurry vision and left sided weakness, outpatient work up suspicious for MS new onset MS with flare iv solumedrol follow up neuro follow up LP hld, overweight will consider starting statin weight loss recommended dvt prophylaxis - lovenox full code reason for continued hospitalization:iv steroids for MS flare Quality Stroke Does the patient have a stroke diagnosis?: No VTE Prior VTE?: No VTE Risk Level:: Medical - moderate - high VTE Device Contraindication: Treatment Not Indicated VTE Drug Contraindication: N/A - Med Ordered
[2022-06-09] MEDS: methylPREDNISolone Sod Succ 1,000 MG in 0.9 % Sodium Chloride 50 ML 66 MG IV (10:12)
--- NOTE | 2022-06-09 17:23 | PC.NURSE ---
PT aox 3, pt sitting in hospital bed, denies any residual neurological effects outside of some intermittent tingle/heat sensation when touching or brushing up against the right lower leg/thigh area. Gait is slow but steady, periodic leg drop per pt report, sometimes a drag is note, using a cane and standby assist. Family at bedside. Reported having pain to left shoulder, moved to wrist area but had resolved prior to this shift, states some pain is moving to the right shoulder area at this time of the note, denies needing medical intervention. Pending consults and awaiting further plan/ workup. Call shabazz within reach, denies any other needs at this time, will continue to monitor.
[2022-06-10 07:43] VITALS: BP 131/76; PULSE 82; RESP 18; TEMP 36; O2SAT 95
--- NOTE | 2022-06-10 08:46 | PM.DS ---
DS: Providers Provider Date of Service: 06/10/22 Date of admission: 06/08/22 22:09 Primary care physician: Juan Toro DO Consults: 06/08/22 22:07 Consult to Neurology Routine Consulting Provider: [facility] Reason for consultation: suspect MS Has provider been notified: No DS: Diagnosis Discharge Diagnosis (1) Multiple sclerosis exacerbation: Status: Acute DS: Summary Hospital Course Hospital Course: from initial hpi: ?this is a 46-year-old male who was otherwise healthy presents to the hospital? stating that he? was sent by his doctor for MS workup.? Patient reports that about 10 days ago he was awoken in the middle the night with pain in his left arm.? Over the next 10 days he progressively developed various? abnormalities including left footdrop, that has made him fall several times with difficulty balancing himself, he then developed? double vision that has resolved, he also has heat intolerance under the shower on the? right of his torso, patient also noted but when he tried placing cold ice on his right torso he had shockwaves and felt like he was being? electrocuted.? Patient denies any similar episodes in the past, he reports no family history of MS or autoimmune disease reports that he had an MRI done by his primary care team which was concerning for MS and he was? asked to come to the ED for further workup.? Patient underwent LP in the ED and received 1000 mg of methylprednisone which he reports feels that is already working with his weakness in his left foot significantly improved after receiving the steroid. ? On arrival to the ED patient with dynamic least stable with no significant abnormal vitals ?labs reviewed, are unremarkable.? LP shows total protein of 49.7 but otherwise not significantly abnormal.? Patient will be admitted for further management hospital course: Patient was admitted for blurry vision left-sided weakness due to new onset multiple sclerosis with flare. He was treated with 3 day course of high-dose IV Solu-Medrol with significant improvement in his neurological deficits. He had a lumbar puncture with results still pending. Was seen by neuro who recommended outpatient follow-up. Patient also noted to have hyperlipidemia and is overweight, should consider starting statin and weight loss. Time Spent with Patient Time attestation: Total time spent providing and/or coordinating discharge services: Discharge coordination time: Greater than 30 minutes Quality: Safe Use of Opioids Does Pt have an Active Cancer Diagnosis on the Problem List?: No Quality: Stroke Does the patient have a stroke diagnosis?: No Physical Exam Vital Signs: Vital Signs: Last Vital Signs Temp 96.8 F 06/10/22 07:43 Pulse 82 06/10/22 07:43 Resp 18 06/10/22 07:43 BP 131/76 06/10/22 07:43 Pulse Ox 95 06/10/22 07:43 O2 Del Method 06/10/22 07:43 BMI result Body Mass Index 30.9 General: AO X 3, no acute distress Resp: CTA bilateral, no accessory muscles used CVS: S1,S2,RRR GI: soft, non tender, non distended Neuro: motor grossly intact, alert Psych: appropriate affect, appropriate insight DS: Data Data Completed and Pending Labs on day of discharge: Preliminary micro results at discharge 06/08/22 18:50 CSF Culture - Preliminary Cerebrospinal Fluid No growth to date. Discharge Plan Discharge Anticipated Discharge Date/Time: 06/10/22 18:00 Patient Disposition: Home, Self-Care Discharge Diagnosis: MS flare Referrals: Juan Toro DO [Primary Care Provider] - 1 Week Discharge Medications: Continued acetaminophen [Tylenol] 325 mg Tablet 650 mg PO Q6H PRN (Reason: Headache) naproxen sodium [Aleve] 220 mg Tablet 220 mg PO Q12H PRN (Reason: Muscle Pain) Diet: Advance to usual diet Activity on Discharge: As tolerated Stand Alone Forms: Patient Portal Discharge page Care Plan Goals: manage MS Health Concerns: Ms Plan of Treatment: follow up with neurology Assessment: see above
[2022-06-10] MEDS: Acetaminophen 325 MG TABLET 650 MG PO ×2 (09:22)
[2022-06-10] MEDS: methylPREDNISolone Sod Succ 1,000 MG in 0.9 % Sodium Chloride 50 ML 66 MG IV (11:00)
[2022-06-10] MEDS: 0.9 % Sodium Chloride Flush 3 ML SYRINGE IVFLUSH (11:05)
[2022-06-10 11:27] VITALS: BP 157/78; PULSE 78; RESP 18; TEMP 36.3; O2SAT 97
--- NOTE | 2022-06-10 11:51 | P.CNNE_ITS ---
History of Present Illness Data of Consult Service Date: 06/10/22 Primary Care Provider: DO PATRIA Henson Reason for consult: Possible multiple sclerosis 46 years old man with no significant past medical history developed right footdrop numbness and abnormal sensations on his body during last few days. He was unsteady and apparently had an MRI of brain done as an outpatient. MRI of brain revealed abnormalities in he was sent to emergency room. I have not seen the MRI but the report was available according to which she had multiple white matter signal abnormalities somewhat periventricular and not enhancing. He had a lumbar puncture and with clinical suspicion of multiple sclerosis axis or [place] garcias he was treated with Solu-Medrol. After 3 days of Solu-Medrol he was feeling much better stating that symptoms were almost resolved. Review of Systems Review of Systems: No recent cold or flu-like illness PMFSH Past Medical History Medical History (Updated 06/09/22 @ 06:41 by Brandi Avilez MD) No pertinent past medical history Family History Family History (Updated 06/09/22 @ 06:40 by Brandi Avilez MD) Other Diabetes Hypertension Surgical History Surgical History (Updated 06/09/22 @ 06:39 by Brandi Avilez MD) S/P ACL repair Social History Social History Household Members: Family Housing: House Do you presently have visiting nurse or other home services: No Alcohol intake: former Patient Tobacco Use Status: Never used Tobacco Meds Allergies Allergy/AdvReac Type Severity Reaction Status Date / Time cilantro Allergy Anaphylaxis Uncoded 06/08/22 15:15 Active Medications: Current Medications Acetaminophen (Acetaminophen 325 Mg Tablet) 650 mg PO Q6H PRN PRN Reason: Pain, Mild (Pain Scale 1-3) Last Admin: 06/10/22 09:22 Dose: 650 mg Docusate Sodium (Docusate Sodium 100 Mg Capsule) 100 mg PO DAILY PRN PRN Reason: Constipation Enoxaparin Sodium (Enoxaparin Sodium 40 Mg/0.4 Ml Syringe) 40 mg SUBCUT Q24H [facility] Last Admin: 06/09/22 22:44 Dose: Not Given Methylprednisolone Sodium Succinate 1,000 mg/ Sodium Chloride 66 mls @ 66 mls/hr IV DAILY [facility] Last Admin: 06/10/22 11:00 Dose: 66 mls/hr Ondansetron HCl (Ondansetron Hcl 4 Mg/2 Ml Vial) 4 mg IVPUSH Q8H PRN PRN Reason: Nausea and Vomiting Sodium Chloride (0.9 % Sodium Chloride Flush 3 Ml Syringe) 3 ml IVFLUSH QSHIFT [facility] Last Admin: 06/10/22 11:05 Dose: 3 ml Home Medications Medication Instructions Recorded Confirmed Last Taken Type acetaminophen 325 mg tablet 650 mg PO Q6H PRN Headache 06/09/22 06/09/22 3 Days Ago History (Tylenol) ~06/06/22 naproxen sodium 220 mg tablet 220 mg PO Q12H PRN Muscle Pain 06/09/22 06/09/22 3 Days Ago History (Aleve) ~06/06/22 Physical Exam Vital Signs: Vital Signs: Last Vital Signs Temp 97.3 F 06/10/22 11:27 Pulse 78 06/10/22 11:27 Resp 18 06/10/22 11:27 BP 157/78 H 06/10/22 11:27 Pulse Ox 97 06/10/22 11:27 O2 Del Method 06/10/22 11:27 BMI result Body Mass Index 30.9 Neuro: Other: He was alert and awake with normal spontaneity of speech fluency comprehension and slightly anxious affect. Pupils were equal and reactive to light. Extraocular muscles were intact. Visual wells are full to threat. There was mild left-sided facial flatness. There was no pronator drift. He was little clumsy with left [id number] testing. Deep tendon reflexes were 1 to 2+ with flexor plantars. He was able to get up and stand without difficulty. Speech was normal. Results Labs CBC & Chem 7: 06/09/22 05:58 06/09/22 05:58 Labs: MRI of brain, I report, revealed abnormalities described in HPI. Microbiology Microbiology Results: Microbiology 06/08/22 18:50 Cerebrospinal Fluid Gram Stain - Final 06/08/22 18:50 Cerebrospinal Fluid CSF Examination - Final 06/08/22 18:50 Cerebrospinal Fluid Fluid Description - Final 06/08/22 18:50 Cerebrospinal Fluid CSF Culture - Preliminary No growth after 1 day Assessment and Plan (1) Multiple sclerosis exacerbation: Status: Acute Probable multiple sclerosis. He was advised to seek outpatient neurology consultation, which he [facility] to [facility] with [facility]. He was advised to talk to his primary care physician and make arrangements. I have not reviewed his MRI of brain myself so could not provide final conclusion and his spinal fluid testing was pending. This all has to be followed and proper management plan has to be made. Procedures Date of Service Date of Service: 06/10/22
[2022-06-10 11:57] LABS: IgA 288 mg/dL (47-310); IgG 789 mg/dL (600-1640); IgM 55 mg/dL (50-300)
--- NOTE | 2022-06-10 12:38 | MHC.CM.PN ---
EMR REVIEWED CM MET WITH PATIENT WHO LIVES WITH HIS AND [place] IN A SINGLE FAMILY HOME. HAS STARTED USING A CANE, NO PRIOR SERVICES.DOES NOT HAVE A HCP AND DECLINES TO DO ONE AT THIS TIME. COVJUANJO NVX X3 PCP DR. FAM ROBLES DP: DC TODAY, NO SERVICES, MOTHER WILL TRANSPORT
[2022-06-11 14:41] LABS: Lyme (B. burgdorferi) PCR NOT DETECTED (NOT DETECTED)
[2022-06-12 09:46] LABS: Albumin, CSF 33.6 mg/dL (8.0-42.0); IgG 721 mg/dL (600-1640); IgG Synthesis Rate -0.4 mg/24 h (-9.9-3.3); IgG, CSF 2.6 mg/dL (0.8-7.7)
== END 2022-06-10 13:30 | disposition home or self-care (01) | DRG 60 ==
LOC: HO.ED 18:41 → HO.EDOVER 22:23 → HO.S3 06-09 19:26
PROVIDERS: Admitting Provider Internal Medicine; Emergency Provider Internal Medicine; PCP Family Medicine; Visit Provider Internal Medicine
DX: G35 Multiple sclerosis (principal); E78.5 Hyperlipidemia, unspecified; E66.3 Overweight; M21.371 Foot drop, right foot; Z68.30 Body mass index [BMI] 30.0-30.9, adult; Z20.822 Contact with and (suspected) exposure to COVID-19
CPT/HCPCS: 36415; 80048; 80053; 80061; 82042; 82784; 82945; 83036; 83735; 83916; 84157; 85025; 85652; 86140; 87015; 87070; 87205; 87476; 87635; 89051; 96365; 99218; 99285; J2930